=== PATIENT | female | born 1980 | race Caucasian/White ===

== ENCOUNTER → 2019-01-19 | Outpatient (CLI) | payer OTHER ==
[~2019-01-19] MED LIST: BENTYL 10 MG CA10 M1 PO; BUTALB-APAP-CA1 EACH PO; CARAFATE 1 GM TA1 GM PO; FLOMAX PO; NOHOMEMEDICATIONS; PERCOCET 5-3251 EACH PO; PRILOSEC 20 MG20 MG PO; ULTRAM 50MG TAB50 MG PO; ZOFRAN4 MG PO
== END ==
LOC: M.RAD 13:00
DX: N63.0 Unspecified lump in unspecified breast (principal); R92.2 Inconclusive mammogram; Z80.3 Family history of malignant neoplasm of breast

== ENCOUNTER → 2019-04-18 | Outpatient (CLI) | payer BC | LOC: M.ULTRA 10:08 | DX: R92.8 Other abnormal and inconclusive findings on diagnostic imaging of breast (principal) ==

== ENCOUNTER 2019-07-09 19:05 | Emergency (ER) | payer BC ==
[~2019-07-09] VITALS: Ht 162.6 cm; Wt 59.9 kg
[2019-07-09 19:19] LABS: URINE CLARITY SL CLOUDY; URINE SPECIFIC GRAVITY 1.015 (1.005-1.030)
[2019-07-09 19:21] LABS: URINE COLOR ORANGE
[2019-07-09] MEDS ORDERED: XANAX 0.5 MG0.5 MG PO (19:23)
[2019-07-09] MEDS ORDERED: SUPER THERAVIT1 EACH PO (19:23)
[2019-07-09] MEDS ORDERED: MACROBID 100 M100 MG PO (19:23)
[2019-07-09 19:24] LABS: SQUAMOUS >10 Many /LPF (0-3)
[2019-07-09] MEDS ORDERED: PHENAZOPYRIDIN200 M2 PO ×2 (19:24→19:27)
[2019-07-09 19:25] LABS: BACTERIA-REFLEX >30 Many /HPF (None Seen); CASTS None Seen /LPF (None Seen); CRYSTALS None Seen /LPF (None Seen); URINE RBC 3-10 Few /HPF (0-2); URINE WBC-REFLEX >25 Many /HPF (0-5)
[2019-07-09] MEDS ORDERED: KEFLEX500 M1 PO (19:27)
[2019-07-09] MEDS ORDERED: ZOFRAN4 MG PO (19:34)
[2019-07-09] MEDS ORDERED: CIPRO500 MG PO (19:34)
[2019-07-09] MEDS ORDERED: TYLENOL WITH CO1 TA1 PO (19:34)
[2019-07-09 20:14] VITALS: BP 137/75
== END 2019-07-09 20:14 | disposition home or self-care (01) ==
LOC: M.ERS 19:05
PROVIDERS: Physician Assistant
DX: N39.0 Urinary tract infection, site not specified (principal); F17.210 Nicotine dependence, cigarettes, uncomplicated; Z87.442 Personal history of urinary calculi; Z90.49 Acquired absence of other specified parts of digestive tract; Z91.041 Radiographic dye allergy status; Z91.048 Other nonmedicinal substance allergy status

== ENCOUNTER → 2019-07-19 | Outpatient (CLI) | payer BC ==
[~2019-07-19] MED LIST changes: +CIPRO500 MG PO; +KEFLEX500 M1 PO; +MACROBID 100 M100 MG PO; +PHENAZOPYRIDIN200 M2 PO; +SUPER THERAVIT1 EACH PO; +TYLENOL WITH CO1 TA1 PO; +XANAX 0.5 MG0.5 MG PO
== END ==
LOC: M.CT 13:00
DX: K80.80 Other cholelithiasis without obstruction (principal); N30.00 Acute cystitis without hematuria; R39.89 Other symptoms and signs involving the genitourinary system; R10.2 Pelvic and perineal pain; N94.10 Unspecified dyspareunia; N20.0 Calculus of kidney; N83.202 Unspecified ovarian cyst, left side; Z87.442 Personal history of urinary calculi; Z79.899 Other long term (current) drug therapy